=== PATIENT | female | born 1960 | race Caucasian/White ===

== ENCOUNTER 2018-08-21 15:00 | Outpatient (RCR) | payer BC, SELFPAY ==
--- NOTE | 2018-07-02 17:27 | HP.PTEVAL_ITS ---
Patient's Visit Information LAMAR MCCULLOUGH is a 58 year old F referred to Physical Therapy by JARRET MILAN with a diagnosis of R LBP. Date of Evaluation: 07/02/18 Physical Therapist: Dino Kerns DPT, OC - Visit Plan Frequency: 3x /Week Duration: 4-6 Weeks Plan: 3x/week for 4 weeks for water based. postural strength, LB ROM, LE strength, Pt will see a neurosurgeon in the meantime. - Subjective Subjective: Has h/o back pain and problems but woke up in March with sharp sciatica in R LE. 2-05/05 since. Keeps her up at night. Can't think of anything she did to bring this on. It hurts worse sitting adn transitioning in bed. Sleeping and moving in bed is not easy. Started land and pool therapy elsewhere but not enough to see if it would help. Will see neurosurgeon next week. Works at [employer] and has to be on stool. It hurts but she has not missed work, has cried some days. No time for hobbies. Pt notes that she does nto have incontinence but wonders if she might, she told her doctor this and will go to ER if it happens. - Pain R LBP adn leg Pain Intensity (Out of 10): 2 Pain Intensity Range: 1, 6 - Objective Walks with R antalgia and gentle trendelenberg, transitions with effort I, bed mobility is painful and needs cues for log rolling. LB AROM ext mod limited adn L SB painful, R SB and flexion full and painfree. - slump and - SLR. reflexes 2/3 patella and achilles B. Sensation WNL to gross light touch. Strength LE 4/5 without myotomal abnormalities. - Goals Goal 1:: Patient report 0-1/10 LBP, no leg pain and 90% iomproved overall. Goal Time Frame: 4-6 Weeks Goal 2:: patient show full L/S AROM without pain and transition on and off mat supine without pain or hesitation Goal Time Frame: 4-6 Weeks Goal 3:: Sleep without waking at night due to pain Goal Time Frame: 4-6 Weeks Goal 4:: I approp HEP to minimize future problems. Goal Time Frame: 4-6 Weeks - Rehabilitation Potential Physical Therapy Diagnosis: R LBP with sciatica Rehabilitation Potential: Fair - Anticipated Interventions Patient/Client Instruction: Educate patient on: Condition, Plan of Care For the Purpose of:: To decrease pain, To improve ability of physical actions for home/community/work/leisure, To improve gait and locomotor functions Therapeutic Exercise to Include: Strength training, In an aquatic setting, Active ROM, Dynamic Lumbar Stabilization, Reed Exercises For the Purpose of:: To decrease pain, To increase ROM, To improve ability of physical actions for home/community/work/leisure, To improve gait and locomotor functions Thank you for the opportunity to evaluate your patient. For Medicare and Medicare HMO plans, please review the plan of care and approve it. It will need to be FAXED BACK to us at [phone] for Medicare purposes. Please let me know if there are questions or concerns regarding this plan of care. Physician Signature: Date:
--- NOTE | 2018-07-23 14:36 | HP.PTREVAL_ITS ---
JARRET MILAN, It has been my pleasure to treat LAMAR MCCULLOUGH over the last 10 visits for R LBP. Please see the progress note below for an update on the physical therapy plan of care! Subjective: Overall up and down. Was having bad leg pain last week into R LE. Sitting last night had same extreme pain. This morning felt good in the leg for the first time in a week. Sciatic pain is still present constantly at 4-7/ 10 most of time. R leg pain down laterally to ankle is new, sciatic pain is slightly better. Neurosurgeon wanted more therapy for another 3 weeks. Then possibly pain management, surgery not appropriate right now. Objective/Function: Ext ROM hurts centrally but imprioved with PPU. Flexion is full and painfree. SB are full. LE strength 4/5. Repeated motion seem to centralize pain and improve ROM ext. Plan Plan: Continue in the water as this is what surgeon wanted and finish 6 week POC. Focus on ext ROM, NS strength of core and LE and posture adn stretch of piri and HS and quads. Please make exit of pool gradual as possible. Patient to contact doctor regarding referral to pain management(per her discussion with surgeon) Goals Goal 1:: Patient report 0-1/10 LBP, no leg pain and 90% iomproved overall. Goal Time Frame: 4-6 Weeks Goal Progress: ? no major change Goal 2:: patient show full L/S AROM without pain and transition on and off mat supine without pain or hesitation Goal Time Frame: 4-6 Weeks Goal Progress: Progressing Goal 3:: Sleep without waking at night due to pain Goal Time Frame: 4-6 Weeks Goal Progress: Progressing Goal 4:: I approp HEP to minimize future problems. Goal Time Frame: 4-6 Weeks Goal Progress: Progressing Anticipated Interventions Patient/Client Instruction: Educate patient on: Condition, Plan of Care For the Purpose of:: To decrease pain, To improve ability of physical actions for home/community/work/leisure, To improve gait and locomotor functions Therapeutic Exercise to Include: Strength training, In an aquatic setting, Active ROM, Dynamic Lumbar Stabilization, Reed Exercises For the Purpose of:: To decrease pain, To increase ROM, To improve ability of physical actions for home/community/work/leisure, To improve gait and locomotor functions Please do not hesitate to contact me at [phone] by phone or Fax: if you have questions or concerns regarding this new plan of care! Sincerely, Dino Kerns, DPT, OC
--- NOTE | 2018-08-21 15:17 | HP.PTDCSUM ---
HP - PT D/C Summary It has been my pleasure to treat LAMAR MCCULLOUGH under orders from JARRET MILAN, for the diagnosis of R LBP for a total of 19 visit(s). Discharge Date: 08/21/18 Please see the following information for a summary of their discharge status. - Subjective Subjective: Doing exercise 3x/week and no improvement. One week off of therapy has not changed anything. Has not called about pain management as she has been busy. Has not missed work due to pain. Can't tolerate much after work as she is in pain all day. May try new mattress. Sleeping in recliner because she cannot sleep in bed. R LB adn LE constant pain 5/10 daily. - Pain R LBP adn leg Pain Intensity (Out of 10): 5 RLE Pain Intensity (Out of 10): 6 - Objective Objective/Function: L/S ext causes pain centrall LB, flexion is full. SB L hurts R and is full, R SB is full and painfree. Not improving overall. Recommend patient continue community pool ex and seek spine doctor's recommendation of pain managemnt which she has not done yet as she has been too busy. - Goals Goal 1:: Patient report 0-1/10 LBP, no leg pain and 90% iomproved overall. Goal Progress: Not Progressing Goal 2:: patient show full L/S AROM without pain and transition on and off mat supine without pain or hesitation Goal Progress: Progressing Goal 3:: Sleep without waking at night due to pain Goal Progress: Not Progressing Goal 4:: I approp HEP to minimize future problems. Goal Progress: Goal Met, water. - Plan Plan: Spine doctor wanted the 6 weeks of PT which is up and then to try pain management and call doctor if they do not help. - D/C Information Discharge Comments: Pt is I in water ex that get her appropriate ex but is not helping her pain. Recommend she take next medical step whcih according to her is pain management(that is what spine doctor told her) If there are questions or concerns regarding this patient's physical therapy, please feel free to call me at [phone]. Thank you for the referral of this patient. Sincerely, Dino Kerns, DPT, OC
== END 2018-08-21 19:00 | disposition home or self-care (01) ==
LOC: PT 15:00
DX: M54.41 Lumbago with sciatica, right side (principal); M25.511 Pain in right shoulder; G89.29 Other chronic pain; M54.2 Cervicalgia
CPT/HCPCS: 97113; 97162; 97530